=== PATIENT | female | born 2000 | race Caucasian/White ===

== ENCOUNTER 2023-11-25 10:00 | Emergency (ER) | payer OTHER ==
[~2023-11-25] VITALS: Ht 170.2 cm; Wt 77.3 kg
[~2023-11-25 10:00] MED LIST: MOTRIN 800800 MG/TAB PO; TYLENOL 325MG325 MG PO
[2023-11-25 10:10] VITALS: BP 123/70; TEMP 97.7
[2023-11-25] MEDS ORDERED: Ketorolac 30 MG/ML VIAL IM ONE (12:45)
[2023-11-25 12:59] LABS: COLLECTION METHOD CLEAN CATCH
[2023-11-25 13:08] LABS: PH 5.5 (5.0-8.5); URINE APPEARANCE CLEAR (CLEAR/HAZY); URINE BLOOD NEGATIVE (NEGATIVE); URINE COLOR YELLOW (YELLOW); URINE GLUCOSE NEGATIVE (NEGATIVE); URINE KETONE NEGATIVE (NEGATIVE); URINE NITRATE NEGATIVE (NEGATIVE); URINE PROTEIN(semi-quant) 1+ (NEGATIVE)
[2023-11-25] MEDS ORDERED: NORFLEX 10100 MG/TAB PO (14:39)
[2023-11-25 15:14] VITALS: PULSE 62
== END 2023-11-25 15:14 | disposition home or self-care (01) ==
LOC: COL.ER 10:00
PROVIDERS: Physician Assistant
DX: S29.012A Strain of muscle and tendon of back wall of thorax, initial encounter (principal); X58.XXXA Exposure to other specified factors, initial encounter
CPT/HCPCS: J1885; J2360